=== PATIENT | male | born 1995 | race Two or more races ===

== ENCOUNTER → 2024-03-26 | Outpatient (CLI) | payer BC, SELFPAY ==
--- NOTE | 2024-03-26 10:22 | XR_ITS ---
Examination: Thoracic spine 3 views Technique one AP lateral coned lateral upper dorsal spine 3 views Exam date and time: March 26, 2024 1121 hours INDICATIONS: Lifting injury to the lower back 2 days ago FINDINGS: Thoracic dextroscoliosis 13 degrees No thoracic fracture Intact pedicles No cortical bone destruction IMPRESSION: No thoracic fracture
== END | disposition home or self-care (01) ==
PROVIDERS: PCP Nurse Practitioner Family; Referring Provider Nurse Practitioner Family; Visit Provider Nurse Practitioner Family
DX: S39.92XA Unspecified injury of lower back, initial encounter (principal); X58.XXXA Exposure to other specified factors, initial encounter
CPT/HCPCS: 72070